=== PATIENT | female | born 2000 | race African-American/Black ===

== ENCOUNTER → 2020-08-15 | Outpatient (REF) | payer OTHER | LOC: M WUC 22:20 | PROVIDERS: ATTEND Nurse Practitioner Family | DX: N76.0 Acute vaginitis (principal) ==

== ENCOUNTER 2020-09-03 16:30 | Emergency (ER) | payer OTHER ==
[~2020-09-03] VITALS: Ht 149.9 cm; Wt 58.8 kg
[2020-09-03] MEDS ORDERED: NUVAMIS2 PV (16:54)
[2020-09-03] MEDS ORDERED: BOOSTRIX/ADACEL VACCINE (DIPHTH/PERTUSS/ACELL/TETANUS) 0.5ML SYR IM ONE (19:15)
[2020-09-03] MEDS ORDERED: AUGMENTIN 875 MG TAB PO ONE (19:15)
[2020-09-03] MEDS ORDERED: DIFL150T PO (19:19)
[2020-09-03] MEDS ORDERED: AUGM875T28 PO (19:19)
[2020-09-03] MEDS ORDERED: NEOSPORIN TOP OINT 15GM TOP ONE (19:29)
[2020-09-03 19:31] VITALS: BP 115/78
[2020-09-04] MEDS ORDERED: NEOSPORIN TOP OINT 15GM TOP ONE (09:00)
== END 2020-09-03 19:58 | disposition home or self-care (01) ==
LOC: M ED 16:30
DX: S01.85XA Open bite of other part of head, initial encounter (principal); W54.0XXA Bitten by dog, initial encounter; Y92.019 Unspecified place in single-family (private) house as the place of occurrence of the external cause; Y93.9 Activity, unspecified; Y99.9 Unspecified external cause status; Z23 Encounter for immunization

== ENCOUNTER → 2020-11-02 | Outpatient (REF) | payer OTHER ==
[~2020-11-02] MED LIST: AUGM875T28 PO; DIFL150T PO; NUVAMIS2 PV
[2020-11-02 13:05] LABS: GC DNA AMPLIFICATION NEGATIVE (NEGATIVE)
== END ==
LOC: M WUC 11:06
PROVIDERS: ATTEND Physician Assistant
DX: N76.0 Acute vaginitis (principal)

== ENCOUNTER → 2020-12-18 | Outpatient (REF) | payer OTHER ==
[2020-12-19 15:27] LABS: GC DNA AMPLIFICATION NEGATIVE (NEGATIVE)
== END ==
LOC: M LAB REF 20:41
PROVIDERS: ATTEND Physician Assistant
DX: N76.0 Acute vaginitis (principal)

== ENCOUNTER 2021-06-26 13:02 | Emergency (ER) | payer OTHER ==
[~2021-06-26] VITALS: Ht 149.9 cm; Wt 60.0 kg
[2021-06-26 20:32] LABS: GC DNA AMPLIFICATION NEGATIVE (NEGATIVE)
[2021-06-26 21:13] VITALS: BP 141/80
== END 2021-06-26 21:24 | disposition home or self-care (01) ==
LOC: M ED 13:02
DX: N83.201 Unspecified ovarian cyst, right side (principal); N89.8 Other specified noninflammatory disorders of vagina